=== PATIENT | male | born 1960 | race African-American/Black ===

== ENCOUNTER 2022-07-22 22:45 | Emergency (ER) | payer MEDICAID, OTHER ==
[~2022-07-22] VITALS: Ht 177.8 cm; Wt 82.0 kg
[~2022-07-22 22:45] MED LIST: ASPI-1073 PO
[2022-07-22 22:51] VITALS: BP 150/94
== END 2022-07-23 01:30 | disposition left against medical advice (07) ==
LOC: ER 22:45
DX: Z53.21 Procedure and treatment not carried out due to patient leaving prior to being seen by health care provider (principal); R56.9 Unspecified convulsions; Z98.890 Other specified postprocedural states
CPT/HCPCS: 99281

== ENCOUNTER 2022-08-15 04:25 | Emergency (ER) | payer MEDICAID, OTHER ==
[~2022-08-15] VITALS: Ht 193 cm; Wt 89.5 kg
[2022-08-15] MEDS ORDERED: IBUP-2029 MT (08:55)
[2022-08-15] MEDS ORDERED: IBUPROFEN 600MG TABLET PO ONE (09:00)
[2022-08-15 10:19] VITALS: BP 135/69
== END 2022-08-15 10:20 | disposition home or self-care (01) ==
LOC: ER 04:25
DX: M25.561 Pain in right knee (principal); Z98.890 Other specified postprocedural states
CPT/HCPCS: 73562; 99283

== ENCOUNTER 2022-08-18 06:24 | Emergency (ER) | payer OTHER ==
[~2022-08-18] VITALS: Ht 175.3 cm; Wt 82.0 kg
[~2022-08-18 06:24] MED LIST changes: +IBUP-2029 MT
[2022-08-18 08:34] VITALS: BP 145/83
[2022-08-18] MEDS ORDERED: IBUP-2028 PO (08:59)
== END 2022-08-18 08:36 | disposition home or self-care (01) ==
LOC: ER 06:24
DX: R60.9 Edema, unspecified (principal)
CPT/HCPCS: 99281

== ENCOUNTER 2022-08-21 15:48 | Emergency (ER) | payer MEDICAID, OTHER ==
[~2022-08-21] VITALS: Ht 175.3 cm; Wt 82.0 kg
[~2022-08-21 15:48] MED LIST changes: +IBUP-2028 PO
[2022-08-21 15:53] VITALS: BP 123/92
[2022-08-21 17:16] LABS: BASOPHILS % 0.6 % (0.0-2.0); EOSINOPHILS % 1.7 % (0.0-5.0); HEMOGLOBIN. 14.5 g/dL (14.0-18.0); LYMPHOCYTES % 30.3 % (20.0-50.0); MEAN CORPUSCULAR HEMOGLOBIN 29.1 pg (28.0-32.0); MEAN CORPUSCULAR VOLUME 88.4 fL (80.0-94.0); MEAN PLATELET VOLUME 8.5 fl (7.4-10.4); MONOCYTES % 9.6 % (2.0-8.0); NEUTROPHILS % 57.8 % (40.0-76.0); PLATELET 207 x1000/uL (130-400); RED BLOOD CELL COUNT 4.98 mill/uL (4.7-6.1)
[2022-08-21 17:24] LABS: CHLORIDE 104 mEq/L (98-107)
[2022-08-21] MEDS ORDERED: SODIUM CHLORIDE 0.9% 1,000 ML IV ONE (17:30)
[2022-08-21 18:10] LABS: CHLORIDE 103 mEq/L (98-107)
[2022-08-21 18:18] LABS: ETHANOL BLOOD < 10 mg/dL
== END 2022-08-21 17:34 | disposition left against medical advice (07) ==
LOC: ER 15:48
DX: R00.2 Palpitations (principal)
CPT/HCPCS: 36415; 71045; 80053; 80320; 83880; 84484; 85025; 93005; 99285; G0480

== ENCOUNTER 2024-08-18 01:48 | Emergency (ER) | payer MEDICAID ==
[~2024-08-18 01:48] MED LIST changes: +NAPR-681 MT
[2024-08-18 06:57] VITALS: BP 116/68; PULSE 90; RESP 16; TEMP 37.6; O2SAT 98
[2024-08-18] MEDS: SODIUM CHLORIDE 0.9% 1,000 ML IV ONE (07:53)
[2024-08-18] MEDS: LOPERAMIDE HCL 2MG CAPSULE PO ONE (07:53)
[2024-08-18 08:02] LABS: HEMATOCRIT. 41.6 % (42.0-52.0); HEMOGLOBIN. 14.2 g/dL (14.0-18.0); MEAN CORPUSCULAR HEMOGLOBIN 29.5 pg (28.0-32.0); MEAN CORPUSCULAR HGB CONC 34.1 g/dL (31.0-37.0); MEAN CORPUSCULAR VOLUME 86.2 fL (80.0-94.0); MEAN PLATELET VOLUME 7.7 fl (7.4-10.4); PLATELET 259 x1000/uL (130-400); RED BLOOD CELL COUNT 4.83 mill/uL (4.7-6.1); RED CELL DISTRIBUTION WIDTH 12.9 % (11.6-14.6); WHITE BLOOD COUNT 6.7 x1000/uL (4.5-11.0)
[2024-08-18 08:03] LABS: DIFFERENTIAL COMMENT 1
[2024-08-18 08:06] LABS: CHLORIDE 94 mEq/L (98-107); POTASSIUM 3.3 mEq/L (3.5-5.1); SODIUM 130 mEq/L (136-145)
[2024-08-18 08:07] LABS: CARBON DIOXIDE 28 mEq/L (21-32)
[2024-08-18 08:08] LABS: CALCIUM 10.1 mg/dL (8.7-10.4)
[2024-08-18 08:12] LABS: CREATININE 1.1 mg/dL (0.6-1.3)
[2024-08-18 08:13] LABS: GLUCOSE 156 mg/dL (70-105); UREA NITROGEN BLOOD 32 mg/dL (9-23)
[2024-08-18 08:14] LABS: ALANINE AMINOTRANSFERASE 39 IU/L (10-49); ASPARTATE AMINOTRANSFERASE 45 IU/L (<34)
[2024-08-18 08:15] LABS: ALBUMIN 4.7 g/dL (3.2-4.8); BILIRUBIN DIRECT < 0.1 mg/dL (<=3.0); BILIRUBIN TOTAL 0.3 mg/dL (0.1-1.0); PROTEIN TOTAL 8.4 g/dL (6.0-8.3)
[2024-08-18] MEDS: SODIUM CHLORIDE 0.9% 500 ML IV ONE (08:42)
[2024-08-18] MEDS: POTASSIUM CHLORIDE 20MEQ TABLET SR PO ONE (08:42)
[2024-08-18] MEDS ORDERED: AZIT500T8 MT (09:00)
[2024-08-18 10:19] LABS: PLATELET ESTIMATE NORMAL
== END 2024-08-18 09:37 | disposition home or self-care (01) ==
LOC: ER 01:48
DX: R19.7 Diarrhea, unspecified (principal); Z79.899 Other long term (current) drug therapy; Z86.59 Personal history of other mental and behavioral disorders; Z79.82 Long term (current) use of aspirin
CPT/HCPCS: 99283; 96360; 80076; 80048; 85025; 36415; J7040; J7030

== ENCOUNTER 2024-11-26 19:37 | Emergency (ER) | payer MEDICAID ==
[~2024-11-26] VITALS: Ht 175.3 cm; Wt 82.0 kg
[~2024-11-26 19:37] MED LIST changes: +AZIT500T8 MT
[2024-11-26 20:00] VITALS: O2SAT 97
[2024-11-26 20:34] VITALS: BP 119/76; PULSE 89; RESP 18; TEMP 36.6; O2SAT 99
[2024-11-26] MEDS ORDERED: KETOROLAC 15MG/ML VIAL IM ONE (21:15)
== END 2024-11-26 22:51 | disposition left against medical advice (07) ==
LOC: ER 19:37
DX: R51.9 Headache, unspecified (principal); Z53.21 Procedure and treatment not carried out due to patient leaving prior to being seen by health care provider

== ENCOUNTER 2024-11-29 08:02 | Emergency (ER) | payer MEDICAID ==
[~2024-11-29] VITALS: Ht 175.3 cm; Wt 82.0 kg
[2024-11-29 08:22] VITALS: O2SAT 95
[2024-11-29] MEDS: HYDROCODONE/ACETAMINOPHEN 5/325MG TABLET PO PRN (08:37)
[2024-11-29] MEDS: IBUPROFEN 600MG TABLET PO ONE (10:05)
[2024-11-29] MEDS ORDERED: TOPUD MT (10:45)
[2024-11-29] MEDS ORDERED: IBUP-2029 MT (10:45)
[2024-11-29 10:51] VITALS: BP 145/79; PULSE 78; RESP 18; TEMP 37; O2SAT 98
== END 2024-11-29 11:16 | disposition home or self-care (01) ==
LOC: ER 08:23
DX: M17.11 Unilateral primary osteoarthritis, right knee (principal); M47.812 Spondylosis without myelopathy or radiculopathy, cervical region; R56.9 Unspecified convulsions; F10.90 Alcohol use, unspecified, uncomplicated; Z79.1 Long term (current) use of non-steroidal anti-inflammatories (NSAID); Z79.82 Long term (current) use of aspirin; Y90.9 Presence of alcohol in blood, level not specified
CPT/HCPCS: 72040; 73560; 99284